=== PATIENT | female | born 1985 | race Two or more races ===

== ENCOUNTER 2019-04-21 13:02 | Inpatient (IN) | payer OTHER ==
[2019-04-21] MEDS ORDERED: MISOPROSTOL 200 MCG TAB PR ×2 (13:30→16:30)
[2019-04-21] MEDS ORDERED: CARBOPROST 250 MCG INJ IM ×2 (13:30→16:30)
[2019-04-21] MEDS ORDERED: METHYLERGONOVINE 0.2 MG INJ IM ×2 (13:30→16:30)
[2019-04-21] MEDS ORDERED: OXYTOCIN 30 UNITS/LR 500 ML IV ×2 (13:30→16:30)
[2019-04-21] MEDS: LACTATED RINGER'S 1,000 ML IV ×3 (13:44→16:16)
[2019-04-21 13:45] LABS: ADD MAN DIFF? NO
[2019-04-21 13:48] LABS: BASOPHIL # 0.1 10^3/ul (0.0-0.1); BASOPHILS % 0.5 % (0.0-2.0); EOSINOPHILS % 0.2 % (0.0-7.0); HEMATOCRIT 38.3 % (37.0-47.0); HEMOGLOBIN 13.2 g/dl (12.0-16.0); LYMPHOCYTES # 1.5 10^3/ul (0.8-2.9); MEAN CORPUSCULAR HEMOGLOBIN 30.6 pg (29.0-33.0); MEAN CORPUSCULAR HGB CONC 34.5 g/dl (32.0-37.0); MEAN CORPUSCULAR VOLUME 88.9 fl (82.0-101.0); MEAN PLATELET VOLUME 11.4 fl (7.4-10.4); MONOCYTE # 0.4 10^3/ul (0.3-0.9); MONOCYTES % 3.9 % (0.0-11.0); NEUTROPHILS % 79.9 % (39.0-77.0); PLATELET COUNT 193 10^3/UL (140-415); RED BLOOD COUNT 4.31 10^6/ul (4.20-5.40)
[2019-04-21 14:31] LABS: INR 0.89; PROTIME 12.1 Sec (11.9-14.9); PT RATIO 0.9
[2019-04-21 14:32] LABS: PARTIAL THROMBOPLASTIN TIME 30.7 Sec (23.0-35.0)
[2019-04-21] MEDS ORDERED: morphine SULFATE/PF (10 MG/10 ML) INJ (15:04)
[2019-04-21] MEDS ORDERED: ONDANSETRON 4 MG INJ (15:12)
[2019-04-21] MEDS ORDERED: METOCLOPRAMIDE 10 MG INJ (15:13)
[2019-04-21] MEDS ORDERED: OXYTOCIN 10 UNIT INJ (15:28)
[2019-04-21] MEDS: CEFAZOLIN 2 GM/50 ML (PMX) 50 ML IVPB (15:33)
[2019-04-21] MEDS ORDERED: MIDAZOLAM 1 MG/ML 2 ML INJ (15:34)
[2019-04-21] MEDS ORDERED: LACTATED RINGER'S 1,000 ML IV (15:46)
[2019-04-21] MEDS ORDERED: EPHEDrine 25 MG/5 ML SYG (15:54)
[2019-04-21] MEDS ORDERED: DIPHENHYDRAMINE 50 MG INJ IV (16:00)
[2019-04-21] MEDS ORDERED: MEPERIDINE 25 MG INJ IV (16:00)
[2019-04-21] MEDS ORDERED: EPHEDrine 25 MG/5 ML SYG IV (16:00)
[2019-04-21] MEDS ORDERED: NALOXONE (0.4 MG/ML) INJ IV (16:00)
[2019-04-21] MEDS ORDERED: HYDROmorphONE 0.5 MG/0.5 ML SYG IV ×2 (16:00)
[2019-04-21] MEDS ORDERED: ZOLPIDEM 5 MG TAB PO (16:00)
[2019-04-21] MEDS ORDERED: ONDANSETRON 4 MG INJ IV (16:00)
[2019-04-21] MEDS ORDERED: MIDAZOLAM 1 MG/ML 2 ML INJ IV (16:00)
[2019-04-21] MEDS ORDERED: NALBUPHINE HCL (10 MG/1 ML) INJ IV (16:00)
[2019-04-21] MEDS ORDERED: METHYLERGONOVINE 0.2 MG TAB PO (16:30)
[2019-04-21] MEDS ORDERED: LANOLIN HPA 1 PKT TOP (16:30)
[2019-04-21] MEDS: OXYTOCIN 30 UNITS/LR 500 ML IV (17:29)
[2019-04-21] MEDS: KETOROLAC 30 MG INJ IV (17:34)
[2019-04-21] MEDS: DIPHENHYDRAMINE 50 MG INJ IV (18:03)
[2019-04-21 21:21] LABS: RAPID PLASMA REAGIN NONREACTIVE (NR)
[2019-04-21] MEDS: SENNA/DOCUSATE NA (8.6MG/50MG) TAB PO (21:37)
[2019-04-22] MEDS: OXYTOCIN 30 UNITS/LR 500 ML IV (01:26)
[2019-04-22] MEDS: LACTATED RINGER'S 1,000 ML IV ×4 (05:27→21:17)
[2019-04-22 06:44] LABS: ADD MAN DIFF? NO
[2019-04-22 06:49] LABS: BASOPHIL # 0.1 10^3/ul (0.0-0.1); BASOPHILS % 0.6 % (0.0-2.0); EOSINOPHILS % 0.4 % (0.0-7.0); HEMATOCRIT 33.2 % (37.0-47.0); HEMOGLOBIN 11.3 g/dl (12.0-16.0); LYMPHOCYTES # 1.3 10^3/ul (0.8-2.9); LYMPHOCYTES % 12.8 % (15.0-51.0); MEAN CORPUSCULAR HEMOGLOBIN 30.7 pg (29.0-33.0); MEAN CORPUSCULAR VOLUME 90.2 fl (82.0-101.0); MEAN PLATELET VOLUME 11.3 fl (7.4-10.4); MONOCYTE # 0.5 10^3/ul (0.3-0.9); NEUTROPHIL # 8.1 10^3/ul (1.6-7.5); NEUTROPHILS % 80.7 % (39.0-77.0); PLATELET COUNT 148 10^3/UL (140-415); RED BLOOD COUNT 3.68 10^6/ul (4.20-5.40); RED CELL DISTRIBUTION WIDTH 13.9 % (11.5-14.5)
[2019-04-22 07:14] LABS: ANION GAP 9 (5-13); BLOOD UREA NITROGEN 5 mg/dl (7-20); CALCIUM 8.7 mg/dl (8.4-10.2); CARBON DIOXIDE 24 mmol/L (21-31); CHLORIDE 103 mmol/L (97-110); CREATININE 0.39 mg/dl (0.44-1.00); Estimated GFR > 60 mL/min (>60); GLUCOSE 80 mg/dl (70-220); POTASSIUM 3.4 mmol/L (3.5-5.1); SODIUM 136 mmol/L (135-144)
[2019-04-22] MEDS ORDERED: HYDROCODONE/APAP (5/325) TAB PO ×2 (09:30)
[2019-04-22] MEDS: DIPHENHYDRAMINE 50 MG INJ IV (11:14)
[2019-04-22] MEDS: SENNA/DOCUSATE NA (8.6MG/50MG) TAB PO ×2 (11:15→20:37)
[2019-04-22] MEDS: KETOROLAC 30 MG INJ IV (13:22)
[2019-04-22] MEDS: IBUPROFEN 800 MG TAB PO (23:23)
[2019-04-23] MEDS: LACTATED RINGER'S 1,000 ML IV ×2 (05:17→13:17)
[2019-04-23] MEDS: IBUPROFEN 800 MG TAB PO ×3 (06:08→23:31)
[2019-04-23] MEDS: SENNA/DOCUSATE NA (8.6MG/50MG) TAB PO ×2 (09:54→21:13)
[2019-04-24] MEDS: IBUPROFEN 800 MG TAB PO ×2 (05:49→12:42)
[2019-04-24 07:18] LABS: ADD MAN DIFF? NO
[2019-04-24 07:35] LABS: BASOPHIL # 0.1 10^3/ul (0.0-0.1); BASOPHILS % 0.6 % (0.0-2.0); EOSINOPHILS # 0.1 10^3/ul (0.0-0.5); EOSINOPHILS % 1.1 % (0.0-7.0); HEMOGLOBIN 11.3 g/dl (12.0-16.0); LYMPHOCYTES # 1.4 10^3/ul (0.8-2.9); LYMPHOCYTES % 14.1 % (15.0-51.0); MEAN CORPUSCULAR HEMOGLOBIN 30.5 pg (29.0-33.0); MEAN CORPUSCULAR HGB CONC 33.2 g/dl (32.0-37.0); MEAN CORPUSCULAR VOLUME 91.6 fl (82.0-101.0); MEAN PLATELET VOLUME 11.3 fl (7.4-10.4); MONOCYTE # 0.5 10^3/ul (0.3-0.9); MONOCYTES % 4.7 % (0.0-11.0); NEUTROPHILS % 78.9 % (39.0-77.0); PLATELET COUNT 179 10^3/UL (140-415); RED BLOOD COUNT 3.71 10^6/ul (4.20-5.40); RED CELL DISTRIBUTION WIDTH 14.4 % (11.5-14.5)
[2019-04-24 07:35] LABS: WHITE BLOOD COUNT 10.1 10^3/ul (4.8-10.8)
[2019-04-24] MEDS: MEASLES,MUMPS,RUBELLA VACCINE INJ SC* (09:00)
[2019-04-24] MEDS ORDERED: DIPHTH/TET/ACEL PERTUSS (ADULT) 0.5 ML VIAL IM* (09:00)
[2019-04-24] MEDS: SENNA/DOCUSATE NA (8.6MG/50MG) TAB PO (09:06)
== END 2019-04-24 15:30 | disposition home or self-care (01) | DRG 788 ==
LOC: L-D 13:02 → PP1 19:03
PROVIDERS: Obstetrics & Gynecology
PROC: 10D00Z1 Extraction of Products of Conception, Low, Open Approach (ICD-10-PCS; principal; 2019-04-21 16:00)
PROC: 3E033VJ Introduction of Other Hormone into Peripheral Vein, Percutaneous Approach (ICD-10-PCS; 2019-04-21 16:00)
DX: O65.5 Obstructed labor due to abnormality of maternal pelvic organs (principal); O34.211 Maternal care for low transverse scar from previous cesarean delivery; Z3A.39 39 weeks gestation of pregnancy; Z37.0 Single live birth
CPT/HCPCS: 80048; 85025; 85610; 85730; 86592; 86850; 86900; 86901; 88305